=== PATIENT | female | born 1975 | race Caucasian/White ===

== ENCOUNTER 2016-08-25 20:39 | Inpatient (IN) | payer OTHER ==
[2016-08-25 22:00] VITALS: BMI 35.4
--- NOTE | 2016-08-25 22:39 | HP ---
CIWA Score - CIWA Score Nausea/Vomitin Muscle Tremors: 4-Moderate,w/Arms Extend Anxiety: 4-Mod. Anxious/Guarded Agitation: 4-Moderately Restless Paroxysmal Sweats: 3 Orientation: 1-Uncertain about Date Tacttile Disturbances: 2-Mild Itch/Numbness/Burn Auditory Disturbances: 0-None Visual Disturbances: 0-None Headache: 3-Moderate CIWA-Ar Total Score: 24 Admission ROS BHS - HPI Chief Complaint: C/O WITHDRAWAL SX'S. SEEKING DETOX TXMENT History of Present Illness: 41 Y.O. FEMALE WITH ALCOHOLISM ADMITTED TO DETOX. CLIENT STATES LAST DETOX 6 YEARS AGO. HAS BEEN REFERRED BY [facility] AFTER SEEKING DETOX/ REHAB THERE. REPORTS LONGEST CLEAN TIME 8 MONTHS RELAPSING THIS PAST JUNE. Exam Limitations: No Limitations - Ebola screening Have you traveled outside of the country in the last 21 days: No (N) Have you had contact with anyone from an Ebola affected area: No Have you been sick,other than usual withdrawal symptoms: No Do you have a fever: No - Review of Systems Constitutional: Chills, Loss of Appetite, Malaise, Night Sweats, Changes in sleep EENT: reports: Nose Congestion, Dental Problems (MISSING TEETH) Respiratory: reports: Shortness of Breath Cardiac: reports: No Symptoms Reported GI: reports: Nausea, Vomiting, Abdominal cramping : reports: No Symptoms Reported Musculoskeletal: reports: No Symptoms Reported Integumentary: reports: No Symptoms Reported Neuro: reports: No Symptoms reported Endocrine: reports: No Symptoms Reported Hematology: reports: No Symptoms Reported Psychiatric: reports: Agitated, Anxious Other Systems: Reviewed and Negative Patient History - Patient Medical History Hx Anemia: Yes Hx Asthma: No Hx Chronic Obstructive Pulmonary Disease (COPD): No Hx Cancer: No Hx Cardiac Disorders: No Hx Congestive Heart Failure: No Hx Hypertension: No Hx Hypercholesterolemia: No Hx Pacemaker: No HX Cerebrovascular Accident: No Hx Seizures: No Hx Dementia: No Hx Diabetes: No Hx Gastrointestinal Disorders: No Hx Liver Disease: No Hx Genitourinary Disorders: No Hx Sexually Transmitted Disorders: No Hx Renal Disease (ESRD): No Hx Thyroid Disease: No Hx Human Immunodeficiency Virus (HIV): No Hx Hepatitis C: No Hx Depression: Yes (PAXIL, BUSPAR, VISTARIL) Hx Suicide Attempt: Yes (LAST ATTEMPT 2000) Hx Bipolar Disorder: Yes Hx Schizophrenia: No - Patient Surgical History Past Surgical History: No - PPD History Previous Implant?: Yes Documented Results: Negative w/o proof Implanted On Prior R Admission?: No PPD to be Administered?: Yes - Reproductive History Patient is a Female of Child Bearing Age (11 -55 yrs old): Yes LMP comment: 08/09/16 Patient : No ([facility]) - Smoking Cessation Smoking history: Current every day smoker Have you smoked in the past 12 months: Yes Aproximately how many cigarettes per day: 4 Cigars Per Day: 0 Hx Chewing Tobacco Use: No Initiated information on smoking cessation: Yes 'Breaking Loose' booklet given: 08/25/16 - Substance & Tx. History Hx Alcohol Use: Yes Hx Substance Use: Yes Substance Use Type: Alcohol, Cocaine Hx Substance Use Treatment: Yes ([facility]) - Substances Abused LIQUOR/BEER Route: Oral Frequency: Daily Amount used: 2- 6 PACKS/ 1/2 GALLON Age of first use: 16 Date of Last Use: 08/25/16 COCAINE Route: Smoking Frequency: Daily Amount used: 100 DOLLARS Age of first use: 33 Date of Last Use: 08/24/16 THC Route: Smoking Frequency: 3-6 times per week Amount used: 1 JOINT Age of first use: 14 Date of Last Use: 08/24/16 Family Disease History - Family Disease History Family History: Denies Admission Physical Exam [facility] - Vital Signs Vital Signs: Vital Signs - 24 hr 08/25/16 21:58 Temperature 95.8 F L Pulse Rate 80 Respiratory 20 Rate Blood Pressure 130/92 - Physical General Appearance: Yes: Mild Distress, Anxious HEENTM: Yes: EOMI, Normocephalic, LIT, Pharynx Normal, Other (POOR DENTITION) Respiratory: Yes: Chest Non-Tender, Lungs Clear, Normal Breath Sounds, No Respiratory Distress, No Accessory Muscle Use Neck: Yes: No masses,lesions,Nodules, Supple, Trachea in good position Breast: Yes: Breast Exam Deferred Cardiology: Yes: Regular Rhythm, Regular Rate, S1, S2 Abdominal: Yes: Normal Bowel Sounds, Non Tender, Soft, Protuberent Genitourinary: Yes: Within Normal Limits Back: Yes: Normal Inspection Musculoskeletal: Yes: full range of Motion, Gait Steady, Back pain Extremities: Yes: Normal Capillary Refill, Normal Range of Motion, Non-Tender, Tremors Neurological: Yes: Fully Oriented, Alert, Motor Strength 5/5 Integumentary: Yes: Normal Color, Dry, Warm Lymphatic: Yes: Within Normal Limits - Diagnostic (1) Alcohol dependence with uncomplicated withdrawal Current Visit: Yes Status: Chronic (2) Cocaine dependence, uncomplicated Current Visit: Yes Status: Chronic (3) Nicotine dependence Current Visit: Yes Status: Chronic Qualifiers: Nicotine product type: cigarettes Substance use status: uncomplicated Qualified Code(s): F17.210 - Nicotine dependence, cigarettes, uncomplicated Cleared for Admission [facility] - Detox or Rehab [facility] Level of Care: Medically Managed Detox Regimen/Protocol: Librium [facility] Breath Alcohol Content Breath Alcohol Content: 0 Urine Pregancy Test - Result Urine Test Results: Negative- NO Line Present Urine Drug Screen - Results Drug Screen Negative: No Urine Drug Screen Results: THC-Marijuana, JAYNE-Cocaine
[2016-08-25] MEDS ORDERED: MAGNESIUM HYDROX 2400MG/30ML ORAL SUSPENSION 30 ML CUP PO PRN (22:51)
[2016-08-25] MEDS ORDERED: IBUPROFEN 400 MG TABLET (FP) PO PRN (22:51)
[2016-08-25] MEDS ORDERED: P-EPHED 60MG/TRIPROLIDI 2.5MG TABLET PO PRN (22:51)
[2016-08-25] MEDS ORDERED: LOPERAMIDE HCL 2 MG CAPSULE PO PRN (22:51)
[2016-08-25] MEDS ORDERED: ACETAMINOPHEN 325 MG TABLET (FP) PO PRN (22:51)
[2016-08-25] MEDS ORDERED: chlordiazePOXIDE HCL 25 MG CAPSULE PO PRN (22:51)
[2016-08-25] MEDS ORDERED: NICOTINE POLACRILEX 2 MG GUM BC PRN (22:51)
[2016-08-25] MEDS ORDERED: MAG HYDROX/AL HYDROX/SIMETH 30 ML UNIT-DOSE CUP PO PRN (22:51)
[2016-08-25] MEDS ORDERED: hydrOXYzine PAMOATE 50 MG CAPSULE (FP) PO PRN (22:51)
[2016-08-25] MEDS ORDERED: guaiFENesin/D-METHORPHAN HB 10 ML UNIT-DOSE CUPS PO PRN (22:51)
[2016-08-25] MEDS ORDERED: MENTHOL/PHENOL 1 EACH UD MM PRN (22:51)
[2016-08-25] MEDS ORDERED: MAGNESIUM CITRATE 300 ML BOTTLE PO PRN (22:51)
[2016-08-26] MEDS: diphenhydrAMINE HCL 50 MG CAPSULE PO PRN ×2 (00:44→22:25)
[2016-08-26] MEDS: chlordiazePOXIDE HCL 25 MG CAPSULE PO SCH ×5 (00:44→22:25)
[2016-08-26 09:54] LABS: MCH 25.6 pg (25.7-33.7); MCHC 32.1 g/dl (32.0-36.0); MEAN CELL VOLUME 79.8 fl (80-96); MEAN PLT VOLUME 8.3 fl (7.5-11.1); PLATELET COUNT 350 K/MM3 (134-434); WHITE BLOOD COUNT 10.3 K/mm3 (4.0-10.0)
[2016-08-26 10:12] LABS: ALBUMIN 3.5 g/dl (3.4-5.0); ALK PHOS 66 U/L (45-117); ANION GAP 10 (8-16); BILIRUBIN,TOTAL 0.5 mg/dL (0.2-1.0); CALCIUM 8.9 mg/dL (8.5-10.1); CO2 26 mmol/L (21-32); COCKROFT - GAULT 129.8545; CREATININE 0.8 mg/dL (0.55-1.02); GLUCOSE,RANDOM 72 mg/dL (74-106); SGOT/AST 13 U/L (15-37); SGPT/ALT 20 U/L (12-78); TOT PROT 7.4 g/dl (6.4-8.2)
[2016-08-26] MEDS: PRENATAL VITAMINS W/ FOLIC ACID TABLET (FP) PO SCH (10:53)
[2016-08-26] MEDS: NICOTINE 14 MG/24 HOURS TOPICAL PATCH TD SCH (10:54)
--- NOTE | 2016-08-26 10:55 | PN ---
S CIWA - CIWA Score Nausea/Vomitin-No Nausea/No Vomiting Muscle Tremors: 4-Moderate,w/Arms Extend Anxiety: 3 Agitation: 4-Moderately Restless Paroxysmal Sweats: 3 Orientation: 0-Oriented Tacttile Disturbances: 0-None Auditory Disturbances: 0-None Visual Disturbances: 0-None Headache: 0-None Present CIWA-Ar Total Score: 14 BHS Progress Note (SOAP) Subjective: nausea sweats shakes interrupted sleep tired Objective: 08/26/16 10:54 Vital Signs Temperature 97.4 F L 08/26/16 09:58 Pulse Rate 78 08/26/16 09:58 Respiratory Rate 18 08/26/16 09:58 Blood Pressure 112/74 08/26/16 09:58 O2 Sat by Pulse Oximetry (%) Laboratory Tests 08/26/16 08/26/16 07:00 07:00 WBC 10.3 H RBC 4.74 Hgb 12.1 Hct 37.8 MCV 79.8 L MCHC 32.1 RDW 15.0 Plt Count 350 MPV 8.3 Sodium 141 Potassium 3.8 Chloride 105 Carbon Dioxide 26 Anion Gap 10 BUN 11 Creatinine 0.8 Creat Clearance w eGFR > 60 Random Glucose 72 L Calcium 8.9 Total Bilirubin 0.5 AST 13 L ALT 20 Alkaline Phosphatase 66 Total Protein 7.4 Albumin 3.5 labs pending awake/alert ambulating no acute distress Assessment: 08/26/16 10:55 withdrawal sx Plan: continue detox increase fluids labs pending
--- NOTE | 2016-08-26 10:58 | EKG ---
Test Reason : Blood Pressure : / mmHG Vent. Rate : 066 BPM Atrial Rate : 066 BPM P-R Int : 122 ms QRS Dur : 096 ms QT Int : 444 ms P-R-T Axes : 035 061 031 degrees QTc Int : 465 ms NORMAL SINUS RHYTHM NORMAL ECG NO PREVIOUS ECGS AVAILABLE Confirmed by EUGENIO BUSTILLO MD ([id number]) on 08/26/2016 10:58:01 AM Referred By: Vinny Richard Confirmed By:EUGENIO BUSTILLO MD
[2016-08-26 17:24] LABS: URINE APPEARANCE CLOUDY; URINE BILIRUBIN NEGATIVE (NEGATIVE); URINE BLOOD NEGATIVE (NEGATIVE); URINE GLUCOSE (UA) NEGATIVE (NEGATIVE); URINE KETONE TRACE (NEGATIVE); URINE NITRITE NEGATIVE (NEGATIVE); URINE UROBILINOGEN NEGATIVE E.U./dl (0.2-1.0)
[2016-08-26 17:32] LABS: URINE COLOR YELLOW; URINE LEUK ESTERASE TRACE (NEGATIVE); URINE PROTEIN 1+ (NEGATIVE)
[2016-08-26 17:42] LABS: URINE BACTERIA RARE /hpf (NONE SEEN); URINE MUCUS RARE; URINE RBC 4 /hpf (0-3); URINE WBC 9 /hpf (3-5)
--- NOTE | 2016-08-26 18:01 | CONSULT ---
[facility] Psychiatric Consult - Data Date of interview: 08/26/16 Admission source: [facility] Identifying data: First admission to [facility] for this 41 y/o female seeking detox treatment for alcohol,cocaine (crack) and marijuana dependence.Patient is single without children,homeless,unemployed and supported on SSI benefits. Substance Abuse History: - Smoking Cessation. Smoking history: Current every day smoker. Have you smoked in the past 12 months: Yes. Aproximately how many cigarettes per day: 4. Cigars Per Day: 0. Hx Chewing Tobacco Use: No. Initiated information on smoking cessation: Yes. 'Breaking Loose' booklet given : 08/25/16. - Substance & Tx. History. Hx Alcohol Use: Yes. Hx Substance Use : Yes. Substance Use Type: Alcohol, Cocaine. Hx Substance Use Treatment: Yes ( [facility]). - Substances Abused. LIQUOR/BEER. Route: Oral. Frequency: Daily. Amount used: 2- 6 PACKS/ 1/2 GALLON. Age of first use: 16. Date of Last Use: 08/25/16. COCAINE. Route: Smoking. Frequency: Daily. Amount used: 100 DOLLARS. Age of first use: 33. Date of Last Use: 08/24/16. THC. Route: Smoking. Frequency: 3-6 times per week. Amount used: 1 JOINT. Age of first use: 14. Date of Last Use: 08/24/16. Confirmed by patient. Medical History: Patient endorses good general health. Psychiatric History: Diagnosed with Bipolar Disorder.History of multiple psychiatric hospitalizations.Known to [facility].Patient states that she is on risperdal,vistaril and paxil (doses unknown).No information from review of pharmacy claims.Ms Haley reports that she is followed at the [facility] clinic.Noted report of a suicide attempt (self- mutilation) in 2000. Physical/Sexual Abuse/Trauma History: Patient denies. Additional Comment: Urine Drug Screen Results: THC-Marijuana, JAYNE-Cocaine.Noted. Mental Status Exam - Mental Status Exam Alert and Oriented to: Time, Place, Person Cognitive Function: Good Patient Appearance: Disheveled Mood: Nervous, Withdrawn, Anxious Affect: Mood Congruent Patient Behavior: Fatigued, Cooperative (superficially) Speech Pattern: Clear Voice Loudness: Normal Thought Process: Goal Oriented Thought Disorder: Not Present Hallucinations: Denies Suicidal Ideation: Denies Homicidal Ideation: Denies Insight/Judgement: Poor Sleep: Well Appetite: Good Muscle strength/Tone: Normal Gait/Station: Normal Psychiatric Findings - Problem List ([place] 1, 2,3) (1) Alcohol dependence with uncomplicated withdrawal Current Visit: Yes Status: Acute (2) Cocaine dependence, uncomplicated Current Visit: Yes Status: Acute (3) Marijuana dependence Current Visit: Yes Status: Acute (4) Nicotine dependence Current Visit: Yes Status: Chronic Qualifiers: Nicotine product type: cigarettes Substance use status: uncomplicated Qualified Code(s): F17.210 - Nicotine dependence, cigarettes, uncomplicated (5) Substance induced mood disorder Current Visit: Yes Status: Acute (6) Bipolar disorder Current Visit: Yes Status: Chronic Comment: History. - Initial Treatment Plan Initial Treatment Plan: Psychoeducation.Detoxification.Risperdal 1 mg po bid.Side effects/benefits discussed with patient.She agrees with this careplan.Observation.
[2016-08-26] MEDS: THIAMINE HCL 100 MG TABLET (FP) PO SCH (22:25)
[2016-08-26] MEDS: risperiDONE 1 MG TABLET (FP) PO SCH (22:25)
[2016-08-27] MEDS: chlordiazePOXIDE HCL 25 MG CAPSULE PO SCH ×3 (06:30→17:33)
[2016-08-27] MEDS: risperiDONE 1 MG TABLET (FP) PO SCH ×2 (10:57→22:41)
[2016-08-27] MEDS: PRENATAL VITAMINS W/ FOLIC ACID TABLET (FP) PO SCH (10:57)
[2016-08-27] MEDS: NICOTINE 14 MG/24 HOURS TOPICAL PATCH TD SCH (10:57)
--- NOTE | 2016-08-27 11:31 | PN ---
[facility] CIWA - CIWA Score Nausea/Vomitin-No Nausea/No Vomiting Muscle Tremors: 3 Anxiety: 2 Agitation: 3 Paroxysmal Sweats: 3 Orientation: 0-Oriented Tacttile Disturbances: 0-None Auditory Disturbances: 0-None Visual Disturbances: 0-None Headache: 0-None Present CIWA-Ar Total Score: 11 S Progress Note (SOAP) Subjective: sweats anxious interrupted sleep Objective: 08/27/16 11:32 Vital Signs Temperature 97.7 F 08/27/16 10:01 Pulse Rate 90 08/27/16 10:01 Respiratory Rate 18 08/27/16 10:01 Blood Pressure 145/79 08/27/16 10:01 O2 Sat by Pulse Oximetry (%) Laboratory Tests 08/25/16 08/26/16 08/26/16 07:00 07:00 07:00 WBC 10.3 H RBC 4.74 Hgb 12.1 Hct 37.8 MCV 79.8 L MCHC 32.1 RDW 15.0 Plt Count 350 MPV 8.3 Sodium 141 Potassium 3.8 Chloride 105 Carbon Dioxide 26 Anion Gap 10 BUN 11 Creatinine 0.8 Creat Clearance w eGFR > 60 Random Glucose 72 L Calcium 8.9 Total Bilirubin 0.5 AST 13 L ALT 20 Alkaline Phosphatase 66 Total Protein 7.4 Albumin 3.5 Urine Color Urine Appearance Urine pH Ur Specific Rice Urine Protein Urine Glucose (UA) Urine Ketones Urine Blood Urine Nitrite Urine Bilirubin Urine Urobilinogen Ur Leukocyte Esterase Urine RBC Urine WBC Ur Epithelial Cells Amorphous Urates Urine Bacteria Urine Mucus RPR Titer Hepatitis C Antibody 0.1 08/26/16 08/26/16 07:00 15:00 WBC RBC Hgb Hct MCV MCHC RDW Plt Count MPV Sodium Potassium Chloride Carbon Dioxide Anion Gap BUN Creatinine Creat Clearance w eGFR Random Glucose Calcium Total Bilirubin AST ALT Alkaline Phosphatase Total Protein Albumin Urine Color Yellow Urine Appearance Cloudy Urine pH 6.0 Ur Specific Rice 1.020 Urine Protein 1+ H Urine Glucose (UA) Negative Urine Ketones Trace H Urine Blood Negative Urine Nitrite Negative Urine Bilirubin Negative Urine Urobilinogen Negative Ur Leukocyte Esterase Trace H Urine RBC 4 Urine WBC 9 Ur Epithelial Cells Many Amorphous Urates Moderate Urine Bacteria Rare Urine Mucus Rare RPR Titer Nonreactive Hepatitis C Antibody awake/alert ambulating no acute distress Assessment: 08/27/16 11:32 withdrawal sx Plan: continue detox increase fluids
[2016-08-27] MEDS: diphenhydrAMINE HCL 50 MG CAPSULE PO PRN (22:41)
[2016-08-27] MEDS: THIAMINE HCL 100 MG TABLET (FP) PO SCH (22:41)
[2016-08-27] MEDS: chlordiazePOXIDE 5 MG CAPSULE PO SCH (22:42)
[2016-08-28] MEDS: chlordiazePOXIDE 5 MG CAPSULE PO SCH ×3 (06:31→17:40)
[2016-08-28] MEDS: PRENATAL VITAMINS W/ FOLIC ACID TABLET (FP) PO SCH (10:49)
[2016-08-28] MEDS: risperiDONE 1 MG TABLET (FP) PO SCH ×2 (10:49→22:48)
[2016-08-28] MEDS: NICOTINE 14 MG/24 HOURS TOPICAL PATCH TD SCH (10:50)
--- NOTE | 2016-08-28 13:19 | PN ---
BHS Progress Note (SOAP) Subjective: little sweats anxiety Objective: 08/28/16 13:18 Vital Signs Temperature 98.1 F 08/28/16 09:58 Pulse Rate 90 08/28/16 09:58 Respiratory Rate 20 08/28/16 09:58 Blood Pressure 111/67 08/28/16 09:58 O2 Sat by Pulse Oximetry (%) awake/alert ambulating no acute distress Assessment: 08/28/16 13:18 withdrawal sx Plan: continue detox increase fluids d/c in am
[2016-08-28] MEDS: chlordiazePOXIDE HCL 10 MG CAPSULE PO SCH (22:48)
[2016-08-28] MEDS: THIAMINE HCL 100 MG TABLET (FP) PO SCH (22:48)
[2016-08-28] MEDS: diphenhydrAMINE HCL 50 MG CAPSULE PO PRN (22:49)
[2016-08-29] MEDS: chlordiazePOXIDE HCL 10 MG CAPSULE PO SCH ×2 (06:24→11:19)
--- NOTE | 2016-08-29 08:35 | DS ---
[facility] Detox Discharge Summary Admission Date: 08/25/16 Discharge Date: 08/29/16 - History Present History: Alcohol Dependence, Cannabis Dependence, Cocaine Dependence - Physical Exam Results Vital Signs: Vital Signs Temperature 97.7 F 08/29/16 08:00 Pulse Rate 85 08/29/16 08:00 Respiratory Rate 18 08/29/16 08:00 Blood Pressure 100/65 08/29/16 08:00 O2 Sat by Pulse Oximetry (%) - Treatment Hospital Course: Detox Protocol Followed, Detoxed Safely, Responded well, Discharged Condition Good, Rehab Referral Accepted - Medication Discharge Medications: Ambulatory Orders Hydroxyzine Pamoate [Vistaril -] 50 mg PO BID 08/25/16 Risperidone [Risperdal] 2 mg PO BID 08/25/16 Risperidone [Risperdal] 2 mg PO BID #30 tablet 08/27/16 - Diagnosis (1) Alcohol dependence with uncomplicated withdrawal Current Visit: Yes Status: Chronic (2) Cocaine dependence, uncomplicated Current Visit: Yes Status: Chronic (3) Marijuana dependence Current Visit: Yes Status: Chronic (4) Substance induced mood disorder Current Visit: Yes Status: Acute (5) Bipolar disorder Current Visit: Yes Status: Chronic (6) Nicotine dependence Current Visit: Yes Status: Chronic Qualifiers: Nicotine product type: cigarettes Substance use status: uncomplicated Qualified Code(s): F17.210 - Nicotine dependence, cigarettes, uncomplicated - AMA Did Patient Leave Against Medical Advice: No
[2016-08-29 11:13] VITALS: BP 121/75; PULSE 91; TEMP 99.9
[2016-08-29] MEDS: NICOTINE 14 MG/24 HOURS TOPICAL PATCH TD SCH (11:19)
[2016-08-29] MEDS: risperiDONE 1 MG TABLET (FP) PO SCH (11:19)
[2016-08-29] MEDS: PRENATAL VITAMINS W/ FOLIC ACID TABLET (FP) PO SCH (11:19)
== END 2016-08-29 12:25 | disposition other institution (70) | DRG 774 ==
LOC: YASAS 20:39 → Y6N 23:02
PROVIDERS: ADMIT Internal Medicine; ATTEND Internal Medicine
PROC: HZ2ZZZZ Detoxification Services for Substance Abuse Treatment (ICD-10-PCS; principal; 2016-08-25)
DX: F10.230 Alcohol dependence with withdrawal, uncomplicated (principal); F14.20 Cocaine dependence, uncomplicated; F12.20 Cannabis dependence, uncomplicated; F17.210 Nicotine dependence, cigarettes, uncomplicated; F31.9 Bipolar disorder, unspecified; F19.24 Other psychoactive substance dependence with psychoactive substance-induced mood disorder; Z91.5 Personal history of self-harm; Z86.2 Personal history of diseases of the blood and blood-forming organs and certain disorders involving the immune mechanism
CPT/HCPCS: 36415; 80053; 81003; 81015; 85027; 86593; 86803; 93005; 93010; J2794

== ENCOUNTER 2016-08-29 12:46 | Inpatient (IN) | payer OTHER ==
[2016-08-29] MEDS ORDERED: PNEUMOC 13-VAL CONJ-DIP CRM/PF 0.5 ML DISP.SYRIN IM ONE (13:27)
[2016-08-29 13:56] VITALS: BMI 36.8
--- NOTE | 2016-08-29 14:16 | HP ---
Psychiatrist Admission - Data Date of interview: 08/29/16 Admission source: [address] [place] [address] Identifying data: This is the first admission to [address] [place] [address] for this 41 greenlandic single H childless female,homeless,supported by [facility]. Medical History: unremarkable Vital Signs: Vital Signs - 24 hr 08/29/16 13:54 Temperature 97.8 F Pulse Rate 93 H Respiratory 18 Rate Blood Pressure 109/78 Allergies/Adverse Reactions: Allergies Allergy/AdvReac Type Severity Reaction Status Date / Time No Known Allergies Allergy Verified 08/25/16 22:51 Date of last physical exam: 08/25/16 Concur with the findings of this exam: Yes - Substance Abuse/Tx History Hx Alcohol Use: Yes (reports drinking since 16-15 yo,heavy drinker since 3 yo) Hx Substance Use: Yes (cocaine since 23 yo,$100 daily,stopped heroin 5-4 yo) Substance Use Type: Alcohol, Cocaine Hx Substance Use Treatment: Yes (this is first inpatient prison treatment) - Admission Criteria Previous failed treatment: Yes Poor recovery environment: Yes Comorbidities: Yes Lacks judgement: Yes Mental Status Exam - Mental Status Exam Alert and Oriented to: Time, Place, Person Cognitive Function: Grossly Intact Patient Appearance: Unkempt Mood: Anxious Affect: Mood Congruent, Labile Patient Behavior: Cooperative Speech Pattern: Clear Voice Loudness: Normal Thought Process: Goal Oriented Thought Disorder: Not Present Hallucinations: Denies Suicidal Ideation: Denies Homicidal Ideation: Denies Insight/Judgement: Fair Sleep: Fair Appetite: Good Muscle strength/Tone: Normal Gait/Station: Normal Psychiatric Findings - Problem List ([place] 1, 2,3) (1) Bipolar disorder Current Visit: No Status: Chronic Comment: History. (2) Marijuana dependence Current Visit: No Status: Chronic (3) Nicotine dependence Current Visit: No Status: Chronic Qualifiers:
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
[2016-08-29] MEDS ORDERED: LOPERAMIDE HCL 2 MG CAPSULE PO PRN (15:01)
[2016-08-29] MEDS ORDERED: P-EPHED 60MG/TRIPROLIDI 2.5MG TABLET PO PRN (15:01)
[2016-08-29] MEDS ORDERED: MENTHOL/PHENOL 1 EACH UD MM PRN (15:01)
[2016-08-29] MEDS ORDERED: MAG HYDROX/AL HYDROX/SIMETH 30 ML UNIT-DOSE CUP PO PRN (15:01)
[2016-08-29] MEDS ORDERED: ACETAMINOPHEN 325 MG TABLET (FP) PO PRN (15:01)
[2016-08-29] MEDS ORDERED: guaiFENesin/D-METHORPHAN HB 10 ML UNIT-DOSE CUPS PO PRN (15:01)
[2016-08-29] MEDS ORDERED: MAGNESIUM CITRATE 300 ML BOTTLE PO PRN (15:01)
[2016-08-29] MEDS ORDERED: MAGNESIUM HYDROX 2400MG/30ML ORAL SUSPENSION 30 ML CUP PO PRN (15:01)
[2016-08-29] MEDS ORDERED: NICOTINE POLACRILEX 2 MG GUM BUC PRN (15:01)
--- NOTE | 2016-08-29 15:14 | HP ---
[facility] Rehab Assess/Revision - Admission History Ad[facility] Date of Admission to Rehab: 08/29/16 - Vital signs Vital Signs: Vital Signs Period Temp Pulse Resp BP Sys/Duran Pulse Ox Last 24 Hr 97.8 F-97.8 F 93-93 18-18 109-109/78-78 - Findings Detox History & Physical reviewed: Yes Concur with findings: Yes
[2016-08-29] MEDS: risperiDONE 2 MG TABLET PO SCH (21:29)
[2016-08-29] MEDS: diphenhydrAMINE HCL 50 MG CAPSULE PO PRN (21:29)
[2016-08-29] MEDS: THIAMINE HCL 100 MG TABLET (FP) PO SCH (21:29)
[2016-08-30] MEDS: IBUPROFEN 400 MG TABLET (FP) PO PRN ×2 (07:28→17:48)
[2016-08-30] MEDS: PRENATAL VITAMINS W/ FOLIC ACID TABLET (FP) PO SCH (09:26)
[2016-08-30] MEDS: PARoxetine HCL 10 MG TABLET (FP) PO SCH (09:26)
[2016-08-30] MEDS: risperiDONE 2 MG TABLET PO SCH ×2 (09:27→21:22)
[2016-08-30] MEDS: NICOTINE 14 MG/24 HOURS TOPICAL PATCH TD SCH (09:27)
[2016-08-30 11:12] LABS: HIV 1 & 2 AB NEGATIVE; HIV 1 AGp24 NEGATIVE
[2016-08-30] MEDS ORDERED: PNEUMOCOCCAL 23 VACCINE 0.5 ML VIAL IM ONE (12:00)
[2016-08-30] MEDS: diphenhydrAMINE HCL 50 MG CAPSULE PO PRN (21:22)
[2016-08-30] MEDS: THIAMINE HCL 100 MG TABLET (FP) PO SCH (21:22)
[2016-08-31] MEDS: IBUPROFEN 400 MG TABLET (FP) PO PRN ×2 (07:51→18:36)
[2016-08-31] MEDS: NICOTINE 14 MG/24 HOURS TOPICAL PATCH TD SCH (09:51)
[2016-08-31] MEDS: PRENATAL VITAMINS W/ FOLIC ACID TABLET (FP) PO SCH (09:51)
[2016-08-31] MEDS: risperiDONE 2 MG TABLET PO SCH ×2 (09:51→21:24)
[2016-08-31] MEDS: PARoxetine HCL 10 MG TABLET (FP) PO SCH (09:52)
[2016-08-31] MEDS: THIAMINE HCL 100 MG TABLET (FP) PO SCH (21:24)
[2016-08-31] MEDS: diphenhydrAMINE HCL 50 MG CAPSULE PO PRN (21:24)
[2016-09-01] MEDS ORDERED: PT OWN MED DRAWER 7, Y5N ONE ×3 (09:29→19:09)
[2016-09-01] MEDS: PARoxetine HCL 10 MG TABLET (FP) PO SCH (10:10)
[2016-09-01] MEDS: risperiDONE 2 MG TABLET PO SCH ×2 (10:11→21:17)
[2016-09-01] MEDS: IBUPROFEN 400 MG TABLET (FP) PO PRN ×2 (10:12→21:18)
[2016-09-01] MEDS: PRENATAL VITAMINS W/ FOLIC ACID TABLET (FP) PO SCH (10:12)
[2016-09-01] MEDS: NICOTINE 14 MG/24 HOURS TOPICAL PATCH TD SCH (10:13)
[2016-09-01] MEDS: THIAMINE HCL 100 MG TABLET (FP) PO SCH (21:17)
[2016-09-01] MEDS: diphenhydrAMINE HCL 50 MG CAPSULE PO PRN (21:18)
[2016-09-02] MEDS: NICOTINE 14 MG/24 HOURS TOPICAL PATCH TD SCH (09:52)
[2016-09-02] MEDS: risperiDONE 2 MG TABLET PO SCH ×2 (09:53→21:51)
[2016-09-02] MEDS: PARoxetine HCL 10 MG TABLET (FP) PO SCH (09:53)
[2016-09-02] MEDS: PRENATAL VITAMINS W/ FOLIC ACID TABLET (FP) PO SCH (09:53)
[2016-09-02] MEDS: THIAMINE HCL 100 MG TABLET (FP) PO SCH (21:51)
[2016-09-02] MEDS: diphenhydrAMINE HCL 50 MG CAPSULE PO PRN (21:51)
[2016-09-03] MEDS: PARoxetine HCL 10 MG TABLET (FP) PO SCH (10:00)
[2016-09-03] MEDS: NICOTINE 14 MG/24 HOURS TOPICAL PATCH TD SCH (10:00)
[2016-09-03] MEDS: PRENATAL VITAMINS W/ FOLIC ACID TABLET (FP) PO SCH (10:01)
[2016-09-03] MEDS: risperiDONE 2 MG TABLET PO SCH ×2 (10:01→21:19)
[2016-09-03] MEDS: THIAMINE HCL 100 MG TABLET (FP) PO SCH (21:19)
[2016-09-03] MEDS: diphenhydrAMINE HCL 50 MG CAPSULE PO PRN (21:20)
[2016-09-04] MEDS: NICOTINE 14 MG/24 HOURS TOPICAL PATCH TD SCH (09:44)
[2016-09-04] MEDS: risperiDONE 2 MG TABLET PO SCH ×2 (09:45→21:26)
[2016-09-04] MEDS: PRENATAL VITAMINS W/ FOLIC ACID TABLET (FP) PO SCH (09:45)
[2016-09-04] MEDS: PARoxetine HCL 10 MG TABLET (FP) PO SCH (09:45)
[2016-09-04] MEDS ORDERED: PT OWN MED DRAWER 7, Y5N ONE (09:59)
[2016-09-04] MEDS: diphenhydrAMINE HCL 50 MG CAPSULE PO PRN (21:26)
[2016-09-04] MEDS: THIAMINE HCL 100 MG TABLET (FP) PO SCH (21:26)
[2016-09-05] MEDS: PRENATAL VITAMINS W/ FOLIC ACID TABLET (FP) PO SCH (10:17)
[2016-09-05] MEDS: risperiDONE 2 MG TABLET PO SCH ×2 (10:17→21:46)
[2016-09-05] MEDS: PARoxetine HCL 10 MG TABLET (FP) PO SCH (10:17)
[2016-09-05] MEDS: NICOTINE 14 MG/24 HOURS TOPICAL PATCH TD SCH (10:18)
[2016-09-05] MEDS: diphenhydrAMINE HCL 50 MG CAPSULE PO PRN (21:46)
[2016-09-05] MEDS: THIAMINE HCL 100 MG TABLET (FP) PO SCH (21:46)
[2016-09-06] MEDS ORDERED: PT OWN MED DRAWER 7, Y5N ONE (08:58)
[2016-09-06] MEDS: NICOTINE 14 MG/24 HOURS TOPICAL PATCH TD SCH (09:50)
[2016-09-06] MEDS: PARoxetine HCL 10 MG TABLET (FP) PO SCH (09:50)
[2016-09-06] MEDS: risperiDONE 2 MG TABLET PO SCH ×2 (09:50→21:29)
[2016-09-06] MEDS: PRENATAL VITAMINS W/ FOLIC ACID TABLET (FP) PO SCH (09:50)
[2016-09-06] MEDS: THIAMINE HCL 100 MG TABLET (FP) PO SCH (21:29)
[2016-09-06] MEDS: diphenhydrAMINE HCL 50 MG CAPSULE PO PRN (21:29)
[2016-09-07] MEDS ORDERED: PT OWN MED DRAWER 7, Y5N ONE (09:02)
[2016-09-07] MEDS: risperiDONE 2 MG TABLET PO SCH ×2 (09:56→21:33)
[2016-09-07] MEDS: PRENATAL VITAMINS W/ FOLIC ACID TABLET (FP) PO SCH (09:56)
[2016-09-07] MEDS: NICOTINE 14 MG/24 HOURS TOPICAL PATCH TD SCH (09:57)
[2016-09-07] MEDS: PARoxetine HCL 10 MG TABLET (FP) PO SCH (09:57)
[2016-09-07] MEDS: THIAMINE HCL 100 MG TABLET (FP) PO SCH (21:33)
[2016-09-07] MEDS: diphenhydrAMINE HCL 50 MG CAPSULE PO PRN (21:34)
[2016-09-08] MEDS: NICOTINE 14 MG/24 HOURS TOPICAL PATCH TD SCH (10:08)
[2016-09-08] MEDS: PRENATAL VITAMINS W/ FOLIC ACID TABLET (FP) PO SCH (10:09)
[2016-09-08] MEDS: PARoxetine HCL 10 MG TABLET (FP) PO SCH (10:09)
[2016-09-08] MEDS: risperiDONE 2 MG TABLET PO SCH ×2 (10:09→21:28)
[2016-09-08] MEDS: diphenhydrAMINE HCL 50 MG CAPSULE PO PRN (21:28)
[2016-09-08] MEDS: THIAMINE HCL 100 MG TABLET (FP) PO SCH (21:28)
[2016-09-09] MEDS: NICOTINE 14 MG/24 HOURS TOPICAL PATCH TD SCH (10:29)
[2016-09-09] MEDS: risperiDONE 2 MG TABLET PO SCH ×2 (10:30→21:20)
[2016-09-09] MEDS: PARoxetine HCL 10 MG TABLET (FP) PO SCH (10:30)
[2016-09-09] MEDS: PRENATAL VITAMINS W/ FOLIC ACID TABLET (FP) PO SCH (10:30)
[2016-09-09] MEDS: diphenhydrAMINE HCL 50 MG CAPSULE PO PRN (21:20)
[2016-09-09] MEDS: THIAMINE HCL 100 MG TABLET (FP) PO SCH (21:20)
[2016-09-10] MEDS: PRENATAL VITAMINS W/ FOLIC ACID TABLET (FP) PO SCH (10:25)
[2016-09-10] MEDS: PARoxetine HCL 10 MG TABLET (FP) PO SCH (10:26)
[2016-09-10] MEDS: risperiDONE 2 MG TABLET PO SCH ×2 (10:26→21:25)
[2016-09-10] MEDS: NICOTINE 14 MG/24 HOURS TOPICAL PATCH TD SCH (10:26)
[2016-09-10] MEDS: THIAMINE HCL 100 MG TABLET (FP) PO SCH (21:25)
[2016-09-10] MEDS: diphenhydrAMINE HCL 50 MG CAPSULE PO PRN (21:26)
[2016-09-11] MEDS ORDERED: PT OWN MED DRAWER 7, Y5N ONE (08:45)
[2016-09-11] MEDS: NICOTINE 14 MG/24 HOURS TOPICAL PATCH TD SCH (10:06)
[2016-09-11] MEDS: PARoxetine HCL 10 MG TABLET (FP) PO SCH (10:06)
[2016-09-11] MEDS: PRENATAL VITAMINS W/ FOLIC ACID TABLET (FP) PO SCH (10:07)
[2016-09-11] MEDS: risperiDONE 2 MG TABLET PO SCH ×2 (10:07→21:21)
[2016-09-11] MEDS: THIAMINE HCL 100 MG TABLET (FP) PO SCH (21:21)
[2016-09-11] MEDS: diphenhydrAMINE HCL 50 MG CAPSULE PO PRN (21:22)
[2016-09-12] MEDS: PRENATAL VITAMINS W/ FOLIC ACID TABLET (FP) PO SCH (10:20)
[2016-09-12] MEDS: PARoxetine HCL 10 MG TABLET (FP) PO SCH (10:20)
[2016-09-12] MEDS: NICOTINE 14 MG/24 HOURS TOPICAL PATCH TD SCH (10:21)
[2016-09-12] MEDS: risperiDONE 2 MG TABLET PO SCH ×2 (10:21→21:28)
[2016-09-12] MEDS: IBUPROFEN 400 MG TABLET (FP) PO PRN (13:12)
[2016-09-12] MEDS: TOLNAFTATE 1% CREAM 15 GM TUBE TP SCH ×2 (13:22→21:28)
[2016-09-12] MEDS ORDERED: PT OWN MED DRAWER 7, Y5N ONE (13:24)
[2016-09-12] MEDS: THIAMINE HCL 100 MG TABLET (FP) PO SCH (21:27)
[2016-09-12] MEDS: diphenhydrAMINE HCL 50 MG CAPSULE PO PRN (21:27)
[2016-09-13] MEDS: PARoxetine HCL 10 MG TABLET (FP) PO SCH (09:44)
[2016-09-13] MEDS: risperiDONE 2 MG TABLET PO SCH ×2 (09:45→21:13)
[2016-09-13] MEDS: TOLNAFTATE 1% CREAM 15 GM TUBE TP SCH ×2 (09:45→21:13)
[2016-09-13] MEDS: PRENATAL VITAMINS W/ FOLIC ACID TABLET (FP) PO SCH (09:45)
[2016-09-13] MEDS: NICOTINE 14 MG/24 HOURS TOPICAL PATCH TD SCH (09:56)
[2016-09-13] MEDS ORDERED: PT OWN MED DRAWER 7, Y5N ONE (19:56)
[2016-09-13] MEDS: THIAMINE HCL 100 MG TABLET (FP) PO SCH (21:13)
[2016-09-13] MEDS: diphenhydrAMINE HCL 50 MG CAPSULE PO PRN (21:13)
[2016-09-14] MEDS ORDERED: PT OWN MED DRAWER 7, Y5N ONE ×3 (08:46→10:31)
[2016-09-14] MEDS: NICOTINE 14 MG/24 HOURS TOPICAL PATCH TD SCH (10:01)
[2016-09-14] MEDS: risperiDONE 2 MG TABLET PO SCH ×2 (10:01→21:03)
[2016-09-14] MEDS: TOLNAFTATE 1% CREAM 15 GM TUBE TP SCH ×2 (10:01→21:04)
[2016-09-14] MEDS: PRENATAL VITAMINS W/ FOLIC ACID TABLET (FP) PO SCH (10:01)
[2016-09-14] MEDS: PARoxetine HCL 10 MG TABLET (FP) PO SCH ×2 (10:29→10:35)
[2016-09-14] MEDS: diphenhydrAMINE HCL 50 MG CAPSULE PO PRN (21:03)
[2016-09-14] MEDS: THIAMINE HCL 100 MG TABLET (FP) PO SCH (21:03)
[2016-09-15] MEDS: PRENATAL VITAMINS W/ FOLIC ACID TABLET (FP) PO SCH (09:48)
[2016-09-15] MEDS: NICOTINE 14 MG/24 HOURS TOPICAL PATCH TD SCH (09:48)
[2016-09-15] MEDS: risperiDONE 2 MG TABLET PO SCH ×2 (09:48→21:27)
[2016-09-15] MEDS: PARoxetine HCL 10 MG TABLET (FP) PO SCH (09:48)
[2016-09-15] MEDS: TOLNAFTATE 1% CREAM 15 GM TUBE TP SCH ×2 (09:49→21:38)
[2016-09-15] MEDS ORDERED: PT OWN MED DRAWER 7, Y5N ONE (21:18)
[2016-09-15] MEDS: THIAMINE HCL 100 MG TABLET (FP) PO SCH (21:27)
[2016-09-15] MEDS: IBUPROFEN 400 MG TABLET (FP) PO PRN (21:28)
[2016-09-16] MEDS ORDERED: PT OWN MED DRAWER 7, Y5N ONE ×2 (08:26→19:30)
[2016-09-16] MEDS: PARoxetine HCL 10 MG TABLET (FP) PO SCH (09:29)
[2016-09-16] MEDS: PRENATAL VITAMINS W/ FOLIC ACID TABLET (FP) PO SCH (09:30)
[2016-09-16] MEDS: risperiDONE 2 MG TABLET PO SCH ×2 (09:30→21:09)
[2016-09-16] MEDS: TOLNAFTATE 1% CREAM 15 GM TUBE TP SCH ×2 (09:31→21:09)
[2016-09-16] MEDS: NICOTINE 14 MG/24 HOURS TOPICAL PATCH TD SCH (09:31)
[2016-09-16] MEDS: THIAMINE HCL 100 MG TABLET (FP) PO SCH (21:09)
[2016-09-16] MEDS: diphenhydrAMINE HCL 50 MG CAPSULE PO PRN (21:10)
[2016-09-17] MEDS: PARoxetine HCL 10 MG TABLET (FP) PO SCH (09:28)
[2016-09-17] MEDS: NICOTINE 14 MG/24 HOURS TOPICAL PATCH TD SCH (09:28)
[2016-09-17] MEDS: risperiDONE 2 MG TABLET PO SCH ×2 (09:29→21:06)
[2016-09-17] MEDS: TOLNAFTATE 1% CREAM 15 GM TUBE TP SCH ×2 (09:29→21:06)
[2016-09-17] MEDS: PRENATAL VITAMINS W/ FOLIC ACID TABLET (FP) PO SCH (09:29)
[2016-09-17] MEDS ORDERED: PT OWN MED DRAWER 7, Y5N ONE (19:21)
[2016-09-17] MEDS: THIAMINE HCL 100 MG TABLET (FP) PO SCH (21:06)
[2016-09-17] MEDS: diphenhydrAMINE HCL 50 MG CAPSULE PO PRN (21:06)
[2016-09-18 06:49] VITALS: TEMP 98.4
[2016-09-18] MEDS ORDERED: PT OWN MED DRAWER 7, Y5N ONE (08:14)
[2016-09-18] MEDS: PARoxetine HCL 10 MG TABLET (FP) PO SCH (09:34)
[2016-09-18] MEDS: TOLNAFTATE 1% CREAM 15 GM TUBE TP SCH ×2 (09:35→21:04)
[2016-09-18] MEDS: PRENATAL VITAMINS W/ FOLIC ACID TABLET (FP) PO SCH (09:35)
[2016-09-18] MEDS: NICOTINE 14 MG/24 HOURS TOPICAL PATCH TD SCH (09:35)
[2016-09-18] MEDS: risperiDONE 2 MG TABLET PO SCH ×2 (09:35→21:02)
[2016-09-18] MEDS: THIAMINE HCL 100 MG TABLET (FP) PO SCH (21:02)
[2016-09-18] MEDS: diphenhydrAMINE HCL 50 MG CAPSULE PO PRN (21:02)
[2016-09-19 06:46] VITALS: BP 112/77; PULSE 67
[2016-09-19] MEDS ORDERED: PT OWN MED DRAWER 7, Y5N ONE (08:42)
--- NOTE | 2016-09-19 09:07 | PN ---
Psychiatric Progress Note Vital Signs: Vital Signs Period Temp Pulse Resp BP Sys/Duran Pulse Ox Last 24 Hr 98.4 F 67 16-16 112/77 Date of Session: 09/19/16 Chief Complaint:: Discharge visit HPI: Patient addressed Alcohol,Cocaine,Cannabis and Opioid dependence comorbid with Bipolar disorder. ROS: Unremarkable. Current Medications: Active Medications Generic Name Dose Route Start Last Admin Trade Name Freq PRN Reason Stop Dose Admin Acetaminophen 650 mg 08/29/16 15:01 08/29/16 15:59 Tylenol - PO 650 mg Q4H PRN Administration FEVER OR PAIN Al Hydroxide/Mg Hydroxide 30 ml 08/29/16 15:01 Mylanta Oral Suspension - PO Q6H PRN DYSPEPSIA Diphenhydramine HCl 50 mg 08/29/16 15:01 09/18/16 21:02 Benadryl - PO 50 mg HSMR1 PRN Administration FOR ITCHING Eucalyptus/Menthol/Phenol/Sorbitol 1 each 08/29/16 15:01 Cepastat Lozenge - MM Q4H PRN SORE THROAT Guaifenesin 10 ml 08/29/16 15:01 Robitussin Dm - PO Q6H PRN COUGH Ibuprofen 400 mg 08/29/16 15:01 09/15/16 21:28 Motrin - PO 400 mg Q6H PRN Administration PAIN Loperamide HCl 4 mg 08/29/16 15:01 Imodium - PO Q6H PRN DIARRHEA Magnesium Hydroxide 30 ml 08/29/16 15:01 Milk Of Magnesia - PO DAILY PRN CONSTIPATION Nicotine 14 mg 08/30/16 10:00 09/18/16 09:35 Nicoderm Patch - TD Not Given DAILY GERRI Nicotine Polacrilex 2 mg 08/29/16 15:01 Nicorette Gum - BUC Q2H PRN NICOTINE REPLACEMENT RX Paroxetine HCl 50 mg 09/14/16 10:15 09/18/16 09:34 Paxil - PO 50 mg DAILY GERRI Administration Multivit/Folic Acid/Iron 1 tab 08/30/16 10:00 09/18/16 09:35 Vitamins (Sjr) - PO 1 tab DAILY GERRI Administration Pseudoephedrine/Triprolidine 1 combo 08/29/16 15:01 Actifed - PO TID PRN NASAL CONGESTION Risperidone 2 mg 08/29/16 22:00 09/18/16 21:02 Risperdal - PO 2 mg BID GERRI Administration Thiamine HCl 100 mg 08/29/16 22:00 09/18/16 21:02 Vitamin B1 - PO 100 mg HS GERRI Administration Tolnaftate 1 applic 09/12/16 12:45 09/18/16 21:04 Tinactin 1% Cream - TP 1 applic BID GERRI Administration Current Side Effect: No Lab tests ordered: No Lab tests reviewed: Yes Provider note:: Patient completed this program today.she has met her treatment goals and will continue to address her issues on outpatient basis at [facility] .Patient continues to find that Risperidone 2 mg po bid and Paxil 50 mg po daily help to cope with anxiety,mood instability, depression.Scripts for 30 days provided. Therapy provided focusing on coping skills,support utilization to maintain recovery. patient is stable for discharge today. Total face to face time:: 30 Mental Status Exam - Mental Status Exam Alert and Oriented to: Time, Place, Person Cognitive Function: Grossly Intact Patient Appearance: Well Groomed Mood: Hopeful, Euthymic Affect: Appropriate, Normal Range Patient Behavior: Cooperative Speech Pattern: Clear Voice Loudness: Normal Thought Process: Goal Oriented Thought Disorder: Not Present Hallucinations: Denies Suicidal Ideation: Denies Homicidal Ideation: Denies Insight/Judgement: Fair Sleep: Fair Appetite: Good Muscle strength/Tone: Normal Gait/Station: Normal Psychiatric Treatment Plan - Problem List (1) Bipolar disorder Comment: History. (3) Nicotine dependence Qualifiers:
[2016-09-19] MEDS: PARoxetine HCL 10 MG TABLET (FP) PO SCH (09:20)
[2016-09-19] MEDS: PRENATAL VITAMINS W/ FOLIC ACID TABLET (FP) PO SCH (09:20)
[2016-09-19] MEDS: risperiDONE 2 MG TABLET PO SCH (09:20)
[2016-09-19] MEDS: TOLNAFTATE 1% CREAM 15 GM TUBE TP SCH (09:22)
[2016-09-19] MEDS: NICOTINE 14 MG/24 HOURS TOPICAL PATCH TD SCH (09:22)
== END 2016-09-19 09:27 | disposition home or self-care (01) | DRG 772 ==
LOC: YASAS 12:46 → Y3E 12:47
PROVIDERS: ADMIT Psychiatry & Neurology Psychiatry; ATTEND Psychiatry & Neurology Psychiatry
PROC: HZ42ZZZ Group Counseling for Substance Abuse Treatment, Cognitive-Behavioral (ICD-10-PCS; principal; 2016-09-19)
DX: F10.20 Alcohol dependence, uncomplicated (principal); F14.20 Cocaine dependence, uncomplicated; F12.20 Cannabis dependence, uncomplicated; F17.210 Nicotine dependence, cigarettes, uncomplicated; F31.9 Bipolar disorder, unspecified; Z59.0 Homelessness
CPT/HCPCS: 36415; 87389; 90732; G0009